=== PATIENT | male | born 1980 | race Two or more races ===

== ENCOUNTER 2018-10-29 01:20 | Emergency (ER) | payer OTHER ==
[2018-10-29] MEDS ORDERED: KETOROLAC TROMETHAMINE INJ/PF 30 MG/1 ML SDV IV ONE (03:03)
[2018-10-29] MEDS ORDERED: MORPHINE SULFATE 10 MG/ML INJ IV ONE ×2 (03:08→05:36)
[2018-10-29] MEDS ORDERED: ONDANSETRON HCL INJ/PF 4 MG/2 ML SDV IV ONE ×2 (03:10→05:36)
[2018-10-29] MEDS ORDERED: NORMAL SALINE 1000 ML 1,000 ML IV ONE (03:14)
--- NOTE | 2018-10-29 03:15 | ER Document Report ---
ED General - General Chief Complaint: Flank Pain Stated Complaint: BACK PAIN,URINARY PROBLEMS Time Seen by Provider: 10/29/18 03:08 Primary Care Provider: JEANNETTE RODRIGUEZ MD [NO LOCAL MD] - Follow up as needed Mode of Arrival: Ambulatory Information source: Patient TRAVEL OUTSIDE OF THE [place] IN LAST 30 DAYS: No - HPI Notes: Patient is a 38-year-old male presents to the emergency department with report of left flank pain that came on abruptly this afternoon when he was walking and then went away and then when he went to sleep tonight he rolled over in bed and started having the left flank pain again associated with nausea and vomiting. Now he states left flank pain is radiating around the left lower quadrant region. The patient denies any chest pain or difficulty breathing or fever or chills. The patient denies any hematemesis. No prior history of kidney stones. The patient denies any numbness or paresthesia or radiation of the pain down the leg. - Related Data Allergies/Adverse Reactions: No Known Allergies Allergy (Unverified 10/29/18 01:42) Past Medical History - General Information source: Patient - Social History Smoking Status: Unknown if Ever Smoked Frequency of alcohol use: None Drug Abuse: None Lives with: Family Family History: Reviewed & Not Pertinent Review of Systems - Review of Systems -: Yes All other systems reviewed and negative Physical Exam - Vital signs Vitals: Temp Pulse Resp BP Pulse Ox 98.3 F 65 20 143/98 H 93 10/29/18 01:39 10/29/18 01:39 10/29/18 01:39 10/29/18 01:39 10/29/18 01:39 - Notes Notes: PHYSICAL EXAMINATION: GENERAL: Well-appearing, well-nourished and in obvious distress with vomiting. HEAD: Atraumatic, normocephalic. EYES: Pupils equal round and reactive to light, extraocular movements intact, sclera anicteric, conjunctiva are normal. ENT: Nares patent, oropharynx clear without exudates. Moist mucous membranes. NECK: Normal range of motion, supple without lymphadenopathy LUNGS: Breath sounds clear to auscultation bilaterally and equal. No wheezes rales or rhonchi. HEART: Regular rate and rhythm without murmurs ABDOMEN: Soft, nontender, nondistended abdomen. No guarding, no rebound. No masses appreciated. Musculoskeletal: Normal range of motion, no pitting or edema. No cyanosis. Left flank pain. No midline pain. No right flank pain. NEUROLOGICAL: Cranial nerves grossly intact. Normal speech, normal gait. Normal sensory, motor exams PSYCH: Normal mood, normal affect. SKIN: Warm, Dry, normal turgor, no rashes or lesions noted. Course - Re-evaluation Re-evalutation: 10/29/18 03:17 Patient was given normal saline bolus and was given IV Zofran and morphine and Toradol. Normal saline bolus 1 L was given. Urine was strained. 10/29/18 05:38 No evidence for aneurysm or renal insufficiency or sepsis or diverticulitis. Patient was instructed to follow-up with urology and a urine strainer was given. Copy of labs and x-rays were also given to the patient for outpatient follow- up. - Vital Signs Vital signs: Temp Pulse Resp BP Pulse Ox 98.3 F 65 18 149/81 H 95 10/29/18 01:39 10/29/18 01:39 10/29/18 05:38 10/29/18 05:38 10/29/18 05:38 - Laboratory Result Diagrams: 10/29/18 03:17 10/29/18 03:17 Laboratory results interpreted by me: 10/29/18 10/29/18 03:17 05:41 Chloride 109 H Carbon Dioxide 21 L Glucose 115 H Lipase 338.3 H Urine Ketones 20 H Urine Blood MODERATE H Discharge - Discharge Clinical Impression: Ureterolithiasis Vomiting Qualifiers: Vomiting type: unspecified Vomiting Intractability: non-intractable Nausea presence: with nausea Qualified Code(s): R11.2 - Nausea with vomiting, unspecified Condition: Stable Disposition: HOME, SELF-CARE Instructions: Kidney Stone ([facility]), Vomiting ([facility]) Additional Instructions: Drink plenty of fluids. Strain your urine and save any stones. Return to the emergency department in case of intractable pain, uncontrolled vomiting, or fever. Follow-up with urology in case you do not pass the stone or the pain does not resolve. Take Flomax 1/day until the stone is passed. Prescriptions: Hydrocodone/Acetaminophen [[place] 5-325 mg Tablet] 1 tab PO Q4HP PRN #20 tablet PRN Reason: Ondansetron [Zofran Odt 4 mg Tablet] 1 tab PO Q8HP PRN #15 tab.rapdis PRN Reason: For Nausea/Vomiting Tamsulosin HCl [Flomax 0.4 mg Cap.sr] 0.4 mg PO DAILY #20 cap.sr.24h Referrals: JEANNETTE RODRIGUEZ MD [NO LOCAL MD] - Follow up as needed
[2018-10-29 03:29] LABS: ABSOLUTE EOSINOPHILS # (AUTO) 0.1 10^3/uL (0.0-0.6); ABSOLUTE MONOCYTES (AUTO) 0.9 10^3/uL (0.1-1.4); ABSOLUTE NEUT (AUTO) 6.7 10^3/uL (1.7-8.2); BASOPHILS % (AUTO) 0.4 % (0-2); EOSINOPHILS % (AUTO) 1.1 % (0-6); HEMATOCRIT 44.3 % (37.9-51.0); HEMOGLOBIN 15.2 g/dL (13.5-17.0); LYMPHOCYTES % (AUTO) 20.7 % (13-45); MEAN CORPUSCULAR HEMOGLOBIN 30.1 pg (27.0-33.4); MEAN CORPUSCULAR HGB CONC 34.3 g/dL (32.0-36.0); MEAN CORPUSCULAR VOLUME 88 fl (80-97); MONOCYTES % (AUTO) 8.9 % (3-13); PLATELET COUNT 220 10^3/uL (150-450); RED BLOOD COUNT 5.05 10^6/uL (4.35-5.55); RED CELL DISTRIBUTION WIDTH 13.6 % (11.5-14.0); SEGMENTED NEUTROPHILS % (AUTO) 68.9 % (42-78); TOTAL CELLS COUNTED % (AUTO) 100 %; WHITE BLOOD COUNT 9.8 10^3/uL (4.0-10.5)
[2018-10-29 03:48] LABS: ALKALINE PHOSPHATASE 103 U/L (38-126); ANION GAP 11 (5-19); ASPARTATE AMINO TRANSFERASE 21 U/L (17-59); BILIRUBIN,DIRECT 0.3 mg/dL (0.0-0.4); BILIRUBIN,TOTAL 0.7 mg/dL (0.2-1.3); BLOOD UREA NITROGEN 14 mg/dL (7-20); CALCIUM 9.1 mg/dL (8.4-10.2); CARBON DIOXIDE 21 mmol/L (22-30); CHLORIDE 109 mmol/L (98-107); GLUCOSE 115 mg/dL (75-110); TOTAL PROTEIN 6.7 g/dL (6.3-8.2)
--- NOTE | 2018-10-29 04:13 | RADIOLOGY REPORT (SQ) ---
EXAM DESCRIPTION: CT ABDOMEN PELVIS WITHOUT IV CONTRAST COMPLETED DATE/TME: 10/29/2018 03:13 CLINICAL HISTORY: 38 years, Male, Left flank pain COMPARISON: None. TECHNIQUE: Axial CT images of the abdomen and pelvis were obtained without contrast. Sagittal and coronal reformats were performed. [facility] [id number] Images stored on PACS. All CT scanners at this facility use dose modulation, iterative reconstruction, and/or weight based dosing when appropriate to reduce radiation dose to as low as reasonably achievable (ALARA). [facility]: Dose Right [facility]: CareDose [facility]: Dose Right [facility]: Teradose 4D [facility]: [employer] LIMITATIONS: None. FINDINGS: The lung bases are clear. The liver, gallbladder, pancreas, spleen, and adrenal glands are unremarkable. There is punctate nonobstructing right-sided nephrolithiasis. There is a 2 mm stone within the left UVJ causing mild hydroureter and hydronephrosis. There are additional punctate stones within the left kidney. There is no intraperitoneal free air or fluid. There is no lymphadenopathy. The stomach, small bowel, appendix, and colon appear unremarkable. The urinary bladder and prostate gland are unremarkable. There are no lytic or blastic bone lesions. IMPRESSION: 2 mm stone within the left UVJ causing mild hydroureter and hydronephrosis. Additional punctate stones within the left kidney. Punctate nonobstructing right-sided nephrolithiasis. TECHNICAL DOCUMENTATION: Quality ID # [id number]: Final reports with documentation of one or more dose reduction techniques (e.g., Automated exposure control, adjustment of the mA and/or kV according to patient size, use of iterative reconstruction technique) copyright 2011 [employer]- All Rights Reserved
[2018-10-29] MEDS ORDERED: TAMSULOSIN HCL 0.4 MG CAP.SR.24H PO ONE (04:51)
[2018-10-29] MEDS ORDERED: HYDROMORPHONE HCL INJ/PF 2 MG/ML AMPULE IV ONE (04:51)
[2018-10-29] MEDS ORDERED: HYDROCODONE/ACETAMINOPHEN 5-325 MG (6 TAB/ER DISP) PO PRN (05:35)
[2018-10-29 05:55] LABS: APPEARANCE,URINE CLEAR; BILIRUBIN,URINE NEGATIVE (NEGATIVE); COLOR,URINE YELLOW; GLUCOSE, URINE NEGATIVE (NEGATIVE); KETONES,URINE 20 mg/dL (NEGATIVE); LEUKOCYTE ESTERASE,URINE NEGATIVE (NEGATIVE); NITRITE,URINE NEGATIVE (NEGATIVE); PROTEIN,URINE NEGATIVE (NEGATIVE); URINE SPECIFIC GRAVITY 1.021; UROBILINOGEN,URINE NEGATIVE mg/dL (<2.0)
[2018-10-29 06:33] VITALS: BP 128/81
== END 2018-10-29 06:33 | disposition home or self-care (01) ==
LOC: ER 01:20
DX: N20.1 Calculus of ureter (principal); R11.2 Nausea with vomiting, unspecified; R10.9 Unspecified abdominal pain; Z87.442 Personal history of urinary calculi
CPT/HCPCS: 36415; 83690; 85025; 80053; 81001; 74176; J1885; J2270; J1170; A9270 ×2; J2405; J7030; 96361; 96374; 96375; 99284